=== PATIENT | male | born 1990 | race Caucasian/White ===

== ENCOUNTER 2016-11-20 08:45 | Emergency (ER) | payer MEDICAID ==
[~2016-11-20] VITALS: Ht 200.7 cm; Wt 127.0 kg
[2016-11-20 08:50] VITALS: BP 137/80
== END 2016-11-20 09:36 | disposition home or self-care (01) ==
LOC: ER 08:54
DX: H10.32 Unspecified acute conjunctivitis, left eye (principal); Z88.2 Allergy status to sulfonamides